=== PATIENT | female | born 1980 | race Caucasian/White ===

== ENCOUNTER 2018-04-14 22:55 | Emergency (ER) | payer BC ==
[~2018-04-14] VITALS: Ht 160 cm; Wt 99.8 kg
[~2018-04-14 22:55] MED LIST: AMIT25TA PO; AZIT250T14 PO; BRIN8DRO OP; CYCL1DRO OP; ESCI20TA10 PO; ESZO3TAB27 PO; FURO20TA3 PO; GABA100C7 PO; HYDR200T5 PO; HYDR25TA PO; LISI10TA2 PO; MAGN400T7 PO; MONT10TA9 PO; OLAN2.5T3 PO; OLAN20TA3 PO; ONDA4TAB7 PO; OXYC-323 PO; POTA10CA PO; PRED20TA PO; PREG150C PO; SERT100T PO; TIZA4TAB PO; [UNRECOGNIZED DRUG - CODE] PO
[2018-04-14 22:57] VITALS: BP 119/76
[2018-04-14 23:05] VITALS: BP 115/70
[2018-04-14 23:09] VITALS: BP 105/62
[2018-04-14 23:24] VITALS: BP 106/62
[2018-04-14] MEDS ORDERED: ASPIRIN ONE (23:26)
[2018-04-14] MEDS ORDERED: TORADOL ONE (23:29)
[2018-04-14] MEDS ORDERED: ASPIRIN PO PRN (23:30)
--- NOTE | 2018-04-14 23:36 | PCM.EKG ---
[facility] Test Date: 2018-04-14 Test Time: 23:25:57 Pat Name: FELICE GLEASON Department: 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
--- NOTE | 2018-04-14 23:37 | NUR ---
PAIN PT VOICES PAIN TO BACK, NECK AND JOINTS. EDP NOTIFIED, ORDER RECEIVED FOR TORADOL
[2018-04-14 23:38] LABS: BASOPHIL % 0.4 % (0.0-0.2); EOSINOPHIL # 0.1 10^3/uL (0.0-0.2); EOSINOPHIL % 1.1 % (0.0-5.0); HEMOGLOBIN 13.8 g/dL (12.0-15.0); LYMPHOCYTES # 2.8 10^3/uL (1.0-4.8); LYMPHOCYTES % 25.4 % (24.0-44.0); MEAN PLATELET VOLUME 11.3 fL (7.8-11.0); MONOCYTES # 1.2 10^3/uL (0.3-0.8); MONOCYTES % 10.6 % (5.0-12.0); NEUTROPHIL # 6.8 10^3/uL (1.8-7.7); NEUTROPHILS % 62.1 % (41.0-85.0); RED CELL DISTRIBUTION WIDTH 14.6 % (11.5-14.5); WHITE BLOOD CELL 10.9 10^3/uL (4.5-11.0)
[2018-04-14 23:39] VITALS: BP 109/66
--- NOTE | 2018-04-14 23:42 | NUR ---
STATUS FAMILY MEMBER AT DESK INQUIRING ABOUT SOMETHING TO DRINK FOR PT. EDUCATION PROVIDED REGARDING NPO PENDING TEST RESULTS. FAMILY INSISITANT, WATER PROVIDED.
[2018-04-14] MEDS ORDERED: TORADOL IM STA (23:46)
--- NOTE | 2018-04-14 23:46 | DIREP ---
PROCEDURE:CHEST 1 VIEW COMPARISON:[facility], CR, XRAY RIBS W/PA CHEST [id number], 02/27/2018, 10:04 PM. INDICATIONS:low blood pressure FINDINGS: LUNGS/PLEURA:No significant pulmonary parenchymal abnormalities. No effusions. VASCULATURE:Normal. Unremarkable pulmonary vasculature. CARDIAC:Normal. No cardiac silhouette abnormality or cardiomegaly. MEDIASTINUM:Normal. No visible mass or adenopathy. BONES:Multiple healed or healing left rib fractures are noted as well as a healed or healing fracture of the lateral aspect of the right 2nd rib. OTHER:Negative. CONCLUSION: 1. No active cardiopulmonary disease is demonstrated. Dictated by: Jacinto Alaniz M.D. on 04/14/2018 at 11:43 PM
[2018-04-14 23:54] VITALS: BP 112/66
--- NOTE | 2018-04-15 00:02 | NUR ---
PAIN PT RATES PAIN 5/10, VOICING "ITS BETTER". NO SIGNS OF DISTRESS. VSS. REMAINS ON ROOM AIR.
[2018-04-15 00:09] VITALS: BP 112/63
[2018-04-15 00:16] LABS: ALANINE AMINOTRANSFERASE(ML) 37 U/L (12-78); ALKALINE PHOSPHATASE 74 U/L (50-136); ASPARTATE AMINO TRANSFERASE 24 U/L (0-35); CALCIUM 8.7 mg/dL (8.4-10.5); CARBON DIOXIDE 23.8 mmol/L (20.0-32); GLUCOSE 116 mg/dL (70-110)
[2018-04-15 00:24] VITALS: BP 108/61
--- NOTE | 2018-04-15 00:25 | ER.PDOC ---
General Chief Complaint: General Complaint Stated Complaint: LOW BLOOD PRESSURE TRAVEL OUT OF US: No Time seen by MD: 23:40 Source: patient Exam Limitations: no limitations History of Present Illness Initial Comments 37 year old female who feels like her blood pressure runs low at home. Lowest reported was 90/60. No chest pain, no palpitation, no dizziness Timing/Duration: 4-6 hours Severity: moderate Associated Symptoms: denies symptoms Allergies: Coded Allergies: No Known Allergies (Unverified , 03/15/17) Home Meds Active Scripts Prednisone (PREDNISONE) 20 Mg Tablet, 3 TAB PO DAILY, #42 TAB Prov:TAJ SUAZO MD 03/16/17 Azithromycin (AZITHROMYCIN) 250 Mg Tablet, 250 MG PO DAILY for Empiric atypical PNA Tx for 14 Days, #14 TABLET Prov:TAJ SUAZO MD 03/16/17 Reported Medications Brinzolamide/Brimonid Tart (Simbrinza 1%-0.2% Eye Drops) 8 Ml Drops.susp, 8 ML OP BID 03/16/17 Olanzapine (ZYPREXA) 20 Mg Tablet, 20 MG PO HS, TABLET 03/16/17 Oxycodone Hcl/Acetaminophen (PERCOCET 10-325 MG TABLET) 1 Each Tablet, 1 EACH PO QID, TABLET 03/16/17 Sulfasalazine (Sulfazine) 500 Mg Tablet, 500 MG PO BID, TABLET 03/16/17 Cyclosporine (RESTASIS) 1 Each Droperette, 1 DROP OP BID, VIAL 03/16/17 Tizanidine Hcl (TIZANIDINE HCL) 4 Mg Tablet, 1 TAB PO TID, #90 TAB 03/15/17 Magnesium Oxide (MAGNESIUM OXIDE) 400 Mg Tablet, 1 TAB PO TIDAC, #30 TAB 5 Refills 03/15/17 Pregabalin (LYRICA) 150 Mg Capsule, 1 CAP PO TID, #60 CAP 5 Refills 03/15/17 Sertraline Hcl (ZOLOFT) 100 Mg Tablet, 1 TAB PO DAILY, #30 TAB 5 Refills 03/15/17 Olanzapine (ZYPREXA) 2.5 Mg Tablet, 1 TAB PO DAILY, #30 TAB 1 Refill 03/15/17 Escitalopram Oxalate (LEXAPRO) 20 Mg Tablet, 1 TAB PO DAILY, #90 TAB 3 Refills 03/15/17 Eszopiclone (LUNESTA) 3 Mg Tablet, 1 TAB PO HS, #30 TAB 1 Refill 03/15/17 Amitriptyline Hcl (AMITRIPTYLINE HCL) 25 Mg Tablet, 1 TAB PO DAILY, #30 TAB 5 Refills 03/15/17 Hydroxyzine Hcl (HYDROXYZINE HCL) 25 Mg Tablet, 1 TAB PO TID, #30 TAB 03/15/17 Ondansetron Hcl (ZOFRAN) 4 Mg Tablet, 1 TAB PO Q6, #20 TAB 03/15/17 Montelukast Sodium (MONTELUKAST SODIUM) 10 Mg Tablet, 1 TAB PO DAILY, #30 TAB 5 Refills 03/15/17 Hydroxychloroquine Sulfate (HYDROXYCHLOROQUINE SULFATE) 200 Mg Tablet, 1 TAB PO BID, #180 TAB 1 Refill 03/15/17 Lisinopril (LISINOPRIL) 10 Mg Tablet, 1 TAB PO HS, #30 TAB 5 Refills 03/15/17 Potassium Chloride (POTASSIUM CHLORIDE) 10 Meq Capsule.er, 1 CAP PO DAILY, #90 CAP 1 Refill 03/15/17 Gabapentin (GABAPENTIN) 100 Mg Capsule, 1 CAP PO TID, #90 CAP 2 Refills 03/15/17 Furosemide (FUROSEMIDE) 20 Mg Tablet, 1 TAB PO DAILY, #90 TAB 1 Refill 03/15/17 Past Medical History Medical History: arrhythmia, COPD, hypertension, other Surgical History: appendectomy, , hysterectomy, other LMP (females 10-50): hysterectomy Social History Smoking: cigarettes, greater than 1 pack/day Alcohol Use: none Drug Use: none Review of Systems Constitutional: no symptoms reported EENTM: no symptoms reported Respiratory: no symptoms reported Cardiovascular: no symptoms reported Gastrointestinal: no symptoms reported Genitourinary: no symptoms reported Musculoskeletal: no symptoms reported Skin: no symptoms reported Psychiatric/Neurological: see HPI Hematologic/Lymphatic: no symptoms reported Immunological/Allergic: no symptoms reported Physical Exam General Appearance: No Apparent Distress, WD/WN EENT: eyes nml inspection, nml ENT inspection Neck: Non-Tender, Full Range of Motion, Supple, Normal Inspection Respiratory: chest non-tender, lungs clear, normal breath sounds, no respiratory distress, no accessory muscle use CVS: reg rate & rhythm, no murmur, no gallop, pulses nml, nml capillary refill Gastrointestinal: Normal Bowel Sounds, No Organomegaly, No Pulsatile Mass Back: Normal Inspection, No CVA Tenderness Extremities: Normal Range of Motion, Non-Tender Neurologic/Psychiatric: inspection and testing supervisor II-XII NML as Tested, No Motor/Sensory Deficits Skin: Normal Color Lymphatic: No Adenopathy Results/Orders Results/Orders Laboratory Tests Test 04/14/18 23:33 White Blood Count 10.9 10^3/uL (4.5-11.0) Red Blood Count 4.92 10^6/uL (4.00-5.20) Hemoglobin 13.8 g/dL (12.0-15.0) Hematocrit 41.8 % (36.0-46.0) Mean Corpuscular Volume 85.0 fL (78-100) Mean Corpuscular Hemoglobin 28.0 pg (26-34) Mean Corpuscular Hemoglobin Concent 33.0 g/dL (33-37) Red Cell Distribution Width 14.6 % (11.5-14.5) Platelet Count 238 10^3/uL (150-400) Mean Platelet Volume 11.3 fL (7.8-11.0) Neutrophils (%) (Auto) 62.1 % (41.0-85.0) Lymphocytes (%) (Auto) 25.4 % (24.0-44.0) Monocytes (%) (Auto) 10.6 % (5.0-12.0) Neutrophils # (Auto) 6.8 10^3/uL (1.8-7.7) Lymphocytes # (Auto) 2.8 10^3/uL (1.0-4.8) Monocytes # (Auto) 1.2 10^3/uL (0.3-0.8) Absolute Immature Granulocyte (auto 0.04 10^3 u/L (0-2) Eosinophils % 1.1 % (0.0-5.0) Basophils % 0.4 % (0.0-0.2) Basophils # 0.0 10^3/uL (0.0-0.1) Eosinophil Count 0.1 10^3/uL (0.0-0.2) Prothrombin Time 9.3 SEC (9.8-11.9) Prothrombin Time INR (Non-Therap) 0.9 Activated Partial Thromboplast Time 22.5 SEC (24.67-30.72) Sodium Level 140 mmol/L (132-145) Potassium Level 4.1 mmol/L (3.6-5.2) Chloride Level 105.0 mmol/L (96-109) Carbon Dioxide Level 23.8 mmol/L (20.0-32) Anion Gap 15.3 Blood Urea Nitrogen 14 mg/dL (7-18) Creatinine 1.25 mg/dL (0.59-1.40) Estimated GFR () 58.0 (>/=60) BUN/Creatinine Ratio 11.0 Glucose Level 116 mg/dL (70-110) Calcium Level 8.7 mg/dL (8.4-10.5) Total Bilirubin < 0.1 mg/dL (0.2-1.0) Aspartate Amino Transf (AST/SGOT) 24 U/L (0-35) Alanine Aminotransferase (ALT/SGPT) 37 U/L (12-78) Alkaline Phosphatase 74 U/L (50-136) Total Creatine Kinase 55 U/L (26-192) Creatine Kinase MB 0.5 ng/mL (0.5-3.6) Troponin I < 0.02 ng/mL (0.00-0.05) Pro-B-Type Natriuretic Peptide 58 pg/mL (0-125) Total Protein 7.1 g/dL (6.4-8.2) Albumin 3.2 g/dL (3.4-5.0) Globulin 3.9 Percent Immature Gran (Cell Imm) 0.40 % (0.00-0.50) Administered Medications Medications (Trade) Dose Ordered Sig/Shirley Route PRN Reason Start Time Stop Time Status Last Admin Dose Admin Aspirin (Aspirin) 325 mg DAILY PRN PO CHEST PAIN 04/14/18 23:30 05/14/18 23:29 04/14/18 23:27 Ketorolac Tromethamine (Toradol) 30 mg STAT STAT IM 04/14/18 23:46 04/14/18 23:48 DC 04/14/18 23:34 Progress Progress BP remains within normal range Course Sepsis Screening Results: Posi: POSITIVE SEPSIS RISK Vitals & review Data Vital Sign - Last 24 Hours 02/27/18 04/14/18 04/14/18 04/14/18 23:29 22:57 22:57 22:57 Temp 98.0 98.0 98.0 98.0 98.0 98.0 Pulse 96 89 89 89 Resp B/P (MAP) 119/76 (90) Pulse Ox 95 95 O2 Delivery Room Air Room Air 04/14/18 04/14/18 04/14/18 04/14/18 23:05 23:09 23:24 23:39 Pulse 89 84 83 84 Resp B/P (MAP) 115/70 (85) 105/62 (76) 106/62 (77) 109/66 (80) Pulse Ox 93 93 94 92 O2 Delivery Room Air Room Air Room Air Room Air Laboratory Tests Test 04/14/18 23:33 White Blood Count 10.9 10^3/uL Red Blood Count 4.92 10^6/uL Hemoglobin 13.8 g/dL Hematocrit 41.8 % Mean Corpuscular Volume 85.0 fL Mean Corpuscular Hemoglobin 28.0 pg Mean Corpuscular Hemoglobin Concent 33.0 g/dL Red Cell Distribution Width 14.6 % Platelet Count 238 10^3/uL Mean Platelet Volume 11.3 fL Neutrophils (%) (Auto) 62.1 % Lymphocytes (%) (Auto) 25.4 % Monocytes (%) (Auto) 10.6 % Neutrophils # (Auto) 6.8 10^3/uL Lymphocytes # (Auto) 2.8 10^3/uL Monocytes # (Auto) 1.2 10^3/uL Absolute Immature Granulocyte (auto 0.04 10^3 u/L Eosinophils % 1.1 % Basophils % 0.4 % Basophils # 0.0 10^3/uL Eosinophil Count 0.1 10^3/uL Prothrombin Time 9.3 SEC Prothrombin Time INR (Non-Therap) 0.9 Activated Partial Thromboplast Time 22.5 SEC Sodium Level 140 mmol/L Potassium Level 4.1 mmol/L Chloride Level 105.0 mmol/L Carbon Dioxide Level 23.8 mmol/L Anion Gap 15.3 Blood Urea Nitrogen 14 mg/dL Creatinine 1.25 mg/dL Estimated GFR () 58.0 BUN/Creatinine Ratio 11.0 Glucose Level 116 mg/dL Calcium Level 8.7 mg/dL Total Bilirubin < 0.1 mg/dL Aspartate Amino Transf (AST/SGOT) 24 U/L Alanine Aminotransferase (ALT/SGPT) 37 U/L Alkaline Phosphatase 74 U/L Total Creatine Kinase 55 U/L Creatine Kinase MB 0.5 ng/mL Troponin I < 0.02 ng/mL Pro-B-Type Natriuretic Peptide 58 pg/mL Total Protein 7.1 g/dL Albumin 3.2 g/dL Globulin 3.9 Percent Immature Gran (Cell Imm) 0.40 % Current Medications Medications (Trade) Dose Ordered Sig/Shirley PRN Reason Start Time Stop Time Status Last Admin Aspirin (Aspirin) 325 mg DAILY PRN CHEST PAIN 04/14/18 23:30 05/14/18 23:29 04/14/18 23:27 Departure Time of Disposition: 00:23 Disposition: 01 HOME, SELF-CARE Impression: Primary Impression: Blood pressure instability Condition: Stable Referrals: TAJ SUAZO MD (PCP) PRIMARY CARE PROVIDER Comments Reassurance RTER prn Follow up PCP Duration or Time Spent with Pa: 45 ANDRE BLEVINS MD Apr 15, 2018 00:25
[2018-04-15 00:39] VITALS: BP 92/63
[2018-04-15 00:52] VITALS: BP 92/63
== END 2018-04-15 00:45 | disposition home or self-care (01) ==
LOC: ER 22:55
DX: I95.9 Hypotension, unspecified (principal); I10 Essential (primary) hypertension; J44.9 Chronic obstructive pulmonary disease, unspecified; R79.1 Abnormal coagulation profile; Z90.49 Acquired absence of other specified parts of digestive tract; Z90.710 Acquired absence of both cervix and uterus; F17.210 Nicotine dependence, cigarettes, uncomplicated; Z79.891 Long term (current) use of opiate analgesic; Z79.2 Long term (current) use of antibiotics; Z79.899 Other long term (current) drug therapy; Z79.82 Long term (current) use of aspirin
CPT/HCPCS: 36415; 71045; 80053; 82550; 82553; 83880; 84484; 85025; 85610; 85730; 93005; 96372; 99285; J1885